=== PATIENT | male | born 1960 | race Caucasian/White ===

== ENCOUNTER 2016-12-23 12:58 | Emergency (ER) | payer MEDICAID ==
--- NOTE | 2016-12-23 13:11 | EDPHY ---
H & P Time Seen by Provider: 12/23/16 13:10 - Personal History Tetanus Vaccine Date: < 10 - Medical/Surgical History Hx Asthma: No Hx Chronic Respiratory Disease: No Hx Diabetes: No Hx Cardiac Disease: No Hx Renal Disease: No Hx Cirrhosis: No Hx Alcoholism: No Hx HIV/AIDS: No Hx Splenectomy or Spleen Trauma: No Other PMH: PMH/PSH/MEDS/ALLERGY UNK ON ARRIVAL. 1940: DEDIES PMH/PSH/ALLERGIES OR MEDS - Social History Smoking Status: Unknown if ever smoked Constitutional: Initial Vital Signs Temperature (C) 36.7 C 12/23/16 13:14 Heart Rate 67 12/23/16 13:14 Respiratory Rate 16 12/23/16 13:14 Blood Pressure 141/85 H 12/23/16 13:14 O2 Sat (%) 97 12/23/16 13:14 O2 Delivery Mode Room Air Allergies/Adverse Reactions: No Known Allergies Allergy (Verified 12/25/12 22:51) Home Medications: Medication Instructions Recorded NK [No Known Home Meds] 12/04/13 Medical Decision Making ED Course/Re-evaluation: CHIEF COMPLAINT: Diarrhea HISTORY OF PRESENT ILLNESS: This patient is a 56-year-old male who presents to the Emergency Department via EMS complaining of persistent diarrhea with associated abdominal cramping over the past four days. He states that he had gradually increasing frequency of stools four day ago that has since increased in frequency to one episode of liquid diarrhea every 5-8 minutes. He reports associated weight loss over that time. He reports only one episode of urination over the past four days. He denies nausea, vomiting, fever, or chills. He denies any recent antibiotic use. No pertinent medical history. REVIEW OF SYSTEMS: A 10 point review of systems was performed and is negative with the exception of the elements mentioned in the history of present illness. PHYSICAL EXAM: HR 67, BP 141/85, O2 Sat 97%, RR 16. Temp noted. General Appearance: Alert, appears dehydrated, cachectic. Head: Atraumatic without scalp tenderness or obvious injury Eyes: Pupils equal, round, reactive to light and accommodation, EOMI, no trauma , no injection. Ears: Clear bilaterally, no perforation, normal landmarks Nose: Atraumatic, no rhinorrhea, clear. Throat: There is no erythema or exudates, no lesions, normal tonsils, mucus membranes moist. Neck: Supple, 2+ carotid upstroke, nontender, no lymphadenopathy. Respiratory: No retractions, no distress, no wheezes, and no accessory muscle use. Lungs are clear to auscultation bilaterally. Cardiovascular: Regular rate and rhythm, no murmurs, rubs, or gallops. Bilateral carotid, radial, dorsalis pedis, and posterior tibial pulses intact. Good capillary refill all extremities. Gastrointestinal: Abdomen is soft, nontender, non-distended, no masses, no rebound, no guarding, no peritoneal signs. Musculoskeletal: Normal active ROM of all extremities, atraumatic. Neurological: Alert, appropriate, and interactive. The patient has normal DTRs and non-focal cranial nerves, motor, sensory, and cerebellar exam. Skin: No rashes, good turgor, no nodules on palpation. Past medical history: Denies. Past surgical history: Denies. Family history: Non-contributory. 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 DIFFERENTIAL DIAGNOSIS: The differential diagnosis for the patient's nausea and vomiting included but was not limited to gastroenteritis, gastritis, medication side effect, and other infectious process. MEDICAL DECISION MAKING: This 56-year-old male presents with complaints of persistent and worsening diarrhea over the past four days with associated abdominal cramping and weight loss. He reports that he has only urinated once during that time. At time of arrival, he appears dehydrated and cachectic. Will proceed with labs, including evaluation of kidney function, and stool culture. Oral rehydration solution administered. IV established. 1L IV NS and 2mg IV morphine administered for pain. Labs reviewed. Chemistries are not concerning for renal insufficiency. CBC is unremarkable. Stool culture is positive for Campylobacter. I discussed these results with the patient and plan to start him on a course of 750mg Ciprofloxacin twice daily. He expresses agreement to this. He will be discharged home in good condition. - Data Points Laboratory Results: Laboratory Results 12/23/16 13:05 12/23/16 13:05 12/23/16 12/23/16 12/23/16 13:05 13:05 13:05 WBC 4.18 10^3/uL 10^3/uL (3.80-9.50) RBC 4.45 10^6/uL 10^6/uL (4.40-6.38) Hgb 14.0 g/dL g/dL (13.7-17.5) Hct 40.4 % % (40.0-51.0) MCV 90.8 fL fL (81.5-99.8) MCH 31.5 pg pg (27.9-34.1) MCHC 34.7 g/dL g/dL (32.4-36.7) RDW 13.2 % % (11.5-15.2) Plt Count 245 10^3/uL 10^3/uL (150-400) MPV 10.6 fL fL (8.7-11.7) Neut % (Auto) 47.1 % % (39.3-74.2) Lymph % (Auto) 35.2 % % (15.0-45.0) [place] % (Auto) 15.1 % H % (4.5-13.0) Eos % (Auto) 1.4 % % (0.6-7.6) Baso % (Auto) 0.7 % % (0.3-1.7) Nucleat RBC Rel Count 0.0 % % (0.0-0.2) Absolute Neuts (auto) 1.97 10^3/uL 10^3/uL (1.70-6.50) Absolute Lymphs (auto) 1.47 10^3/uL 10^3/uL (1.00-3.00) Absolute Monos (auto) 0.63 10^3/uL 10^3/uL (0.30-0.80) Absolute Eos (auto) 0.06 10^3/uL 10^3/uL (0.03-0.40) Absolute Basos (auto) 0.03 10^3/uL 10^3/uL (0.02-0.10) Absolute Nucleated RBC 0.00 10^3/uL 10^3/uL (0-0.01) Immature Gran % 0.5 % % (0.0-1.1) Immature Gran # 0.02 10^3/uL 10^3/uL (0.00-0.10) Sodium 131 mEq/L L mEq/L (134-144) Potassium 4.9 mEq/L mEq/L (3.5-5.2) Chloride 100 mEq/L mEq/L (97-110) Carbon Dioxide 21 mEq/l L mEq/l (22-31) Anion Gap 10 mEq/L mEq/L (8-16) BUN 17 mg/dL mg/dL (7-23) Creatinine 0.9 mg/dL mg/dL (0.7-1.3) Estimated GFR > 60 Glucose 110 mg/dL H mg/dL (70-100) Calcium 9.1 mg/dL mg/dL (8.5-10.4) Stool Concentration Cancelled Stool Ova & Parasites Cancelled Parasite Trichrome Cancelled C. difficile Tox (PCR) Cancelled Direct Microscop Exam Cancelled Microbiology Results: MICROBIOLOGY 12/23/16 13:05 Stool Gastrointestinal Tract Panel (PCR) - Final Campylobacter Species Medications Given: Discontinued Medications Sodium Chloride (Ns) 1,000 mls @ 0 mls/hr IV ONCE ONE PRN Reason: Wide Open Stop: 12/23/16 13:22 Last Admin: 12/23/16 13:34 Dose: 1,000 mls Morphine Sulfate (Morphine) 4 mg IVP EDNOW ONE Stop: 12/23/16 13:22 Last Admin: 12/23/16 13:34 Dose: 4 mg Departure - Departure Disposition: Home, Routine, Self-Care Clinical Impression: Campylobacter diarrhea, Dehydration Condition: Good Instructions: Infectious Colitis (ED) Additional Instructions: 1. Take 750mg Ciprofloxacin twice daily for seven days. It is important that you complete the entire course. 2. Stay hydrated with an electrolyte solution (like Gatorade). 3. Follow-up with a primary care provider in 3-5 days for reevaluation. We have referred you to our on-call provider or [facility]. 4. Return to the Emergency Department with worsening diarrhea, inability to keep fluids down, weakness, lightheadedness, inability to urinate, or other serious concerns. Referrals: Nikki Dillon MD [[facility] Primary Care Provider] - As per Instructions Report Scribed for: Anthony Sahu Report Scribed by: Dotty Perrin Date of Report: 12/23/16 Time of Report: 13:15
[2016-12-23] MEDS ORDERED: NS 1,000 ML IV ONE (13:21)
[2016-12-23 13:26] LABS: % IMMATURE GRANULYOCYTES 0.5 % (0.0-1.1); ABSOLUTE IMMATURE GRANULOCYTES 0.02 10^3/uL (0.00-0.10); ADD DIFF? NO; ADD MORPH? NO; ADD SCAN? NO; ATYPICAL LYMPHOCYTE FLAG 90 (0-99); FRAGMENT RBC FLAG 0 (0-99); HEMATOCRIT 40.4 % (40.0-51.0); LEFT SHIFT FLG 40 (0-99); LIPEMIA HEMOLYSIS FLAG 90 (0-99); MEAN CELL HEMOGLOBIN 31.5 pg (27.9-34.1); MEAN CELL HEMOGLOBIN CONCENTR. 34.7 g/dL (32.4-36.7); MEAN CELL VOLUME 90.8 fL (81.5-99.8); MEAN PLATELET VOLUME 10.6 fL (8.7-11.7); PLATELET CLUMPS FLAG 10 (0-99); PLATELET COUNT 245 10^3/uL (150-400); RED BLOOD CELL COUNT 4.45 10^6/uL (4.40-6.38); RED CELL DISTRIBUTION WIDTH 13.2 % (11.5-15.2)
[2016-12-23 13:33] LABS: ANION GAP 10 mEq/L (8-16); CALCIUM 9.1 mg/dL (8.5-10.4); CARBON DIOXIDE 21 mEq/l (22-31); CHLORIDE 100 mEq/L (97-110); CREATININE 0.9 mg/dL (0.7-1.3); GLOMERULAR FILTRATION RATE > 60; GLUCOSE 110 mg/dL (70-100); POTASSIUM 4.9 mEq/L (3.5-5.2); SODIUM 131 mEq/L (134-144)
[2016-12-23 16:26] VITALS: BP 110/85; PULSE 85; RESP 18; TEMP 98.4; O2SAT 91
== END 2016-12-23 16:24 | disposition home or self-care (01) ==
LOC: EDUNIT#
DX: A04.5 Campylobacter enteritis (principal); E86.0 Dehydration
CPT/HCPCS: 96374

== ENCOUNTER 2019-01-13 14:32 | Emergency (ER) | payer MEDICAID | END 2019-01-13 15:47 | disposition home or self-care (01) ==